=== PATIENT | female | born 2000 | race Caucasian/White ===

== ENCOUNTER 2020-01-26 10:10 | Emergency (ER) | payer MEDICAID, OTHER ==
[~2020-01-26] VITALS: Ht 167.6 cm; Wt 54.4 kg
--- NOTE | 2020-01-26 10:20 | NUR ---
RT AT THE BEDSIDE
[2020-01-26] MEDS ORDERED: IPRATROPIUM NEB FS 0.5 MG/2.5 ML AMPUL.NEB ONE (10:24)
[2020-01-26] MEDS ORDERED: ALBUTEROL FS 2.5 MG/3 ML VIAL.NEB ONE (10:24)
[2020-01-26] MEDS ORDERED: methylPREDNISolone SOD SUCC 125 MG/2ML VIAL ONE (10:27)
[2020-01-26] MEDS ORDERED: methylPREDNISolone SOD SUCC 125 MG/2ML VIAL IV ONE (10:30)
[2020-01-26] MEDS ORDERED: ALBUTEROL FS 2.5 MG/3 ML VIAL.NEB CONTNEB ONE (10:30)
[2020-01-26] MEDS ORDERED: IPRATROPIUM NEB FS 0.5 MG/2.5 ML AMPUL.NEB NEB ONE (10:30)
--- NOTE | 2020-01-26 10:30 | NUR ---
MARCO FROM AN WHERE SHE IS STAYING. TO ER BED 6. AAOX4. IN MODERATE RESP DISTRESS, BRETHING RAPID GASPING W/ ACCESSORY MUSCLE USE. AUDIBLE WHEEZING HEARD. CAME IN FOR ASTHMA EXACERBATION. PT RECEIVED ON NON REBREATHER 15LPM. WAS AT THE BEDSIDE FOR EVAL. ORDERS RECEIVED, NOTED AND CARRIED OUT.
--- NOTE | 2020-01-26 11:00 | NUR ---
IV LINE ESTABLISHED ON L THIGH 22G
[2020-01-26] MEDS: ALBUTEROL FS 2.5 MG/3 ML VIAL.NEB CONTNEB ONE ×2 (12:38→12:53)
[2020-01-26] MEDS ORDERED: ONDANSETRON 4 MG TAB.RAPDIS ONE (12:57)
[2020-01-26] MEDS ORDERED: ONDANSETRON 4 MG TAB.RAPDIS SL ONE (13:00)
--- NOTE | 2020-01-26 13:05 | NUR ---
Patient discharged to home in stable condition. Written and verbal after care instructions given. Patient verbalizes understanding of instruction. Pt ambulatory with a steady gait
--- NOTE | 2020-01-26 13:05 | NUR ---
IV removed. Catheter intact and site benign. Pressure and 4x4 applied to site. No bleeding noted.
[2020-01-26 14:04] VITALS: BP 145/85
== END 2020-01-26 13:06 | disposition home or self-care (01) ==
LOC: ER 10:16
DX: J45.901 Unspecified asthma with (acute) exacerbation (principal); F15.10 Other stimulant abuse, uncomplicated; F11.10 Opioid abuse, uncomplicated; F41.9 Anxiety disorder, unspecified
CPT/HCPCS: 94644; 96374; 99285; J2930; Q0162

== ENCOUNTER 2023-02-08 10:15 | Emergency (ER) | payer MEDICAID ==
[~2023-02-08] VITALS: Ht 167.6 cm; Wt 59.0 kg
[2023-02-08 10:42] VITALS: BP 144/93; TEMP 98.1
[2023-02-08] MEDS ORDERED: IBUP-1955 PO (11:25)
[2023-02-08] MEDS ORDERED: AMOX-430 PO (11:25)
[2023-02-08 11:47] VITALS: O2SAT 100
== END 2023-02-08 11:49 | disposition home or self-care (01) ==
LOC: ER 10:25
DX: K02.9 Dental caries, unspecified (principal); J45.909 Unspecified asthma, uncomplicated; F41.9 Anxiety disorder, unspecified

== ENCOUNTER 2025-05-28 05:11 | Emergency (ER) | payer OTHER, MEDICAID ==
[~2025-05-28] VITALS: Ht 170.2 cm; Wt 66.7 kg
[~2025-05-28 05:11] MED LIST: AMOX-430 PO; IBUP-1955 PO
[2025-05-28 05:59] VITALS: BP 121/69; TEMP 98.5; O2SAT 100
== END 2025-05-28 06:41 ==
LOC: ER 05:25
DX: O99.511 Diseases of the respiratory system complicating pregnancy, first trimester (principal); O99.321 Drug use complicating pregnancy, first trimester; R05.9 Cough, unspecified; F12.90 Cannabis use, unspecified, uncomplicated; J18.9 Pneumonia, unspecified organism; J45.909 Unspecified asthma, uncomplicated; Z3A.12 12 weeks gestation of pregnancy; Z65.3 Problems related to other legal circumstances